=== PATIENT | female | born 1940 | race Two or more races ===

== ENCOUNTER 2021-03-11 13:46 | Inpatient (IN) | payer MEDICARE, OTHER ==
[~2021-03-11] VITALS: Ht 163.8 cm; Wt 68.0 kg
[2021-03-11 15:09] VITALS: BP 142/78
[2021-03-11] MEDS ORDERED: ONDANSETRON 2MG/ML, 2ML IV PRN (15:30)
[2021-03-11] MEDS: SODIUM CHLORIDE 0.9% 1,000 ML IV SCH ×2 (15:30→23:30)
[2021-03-11] MEDS ORDERED: BISACODYL 5 MG EC TABLET PO PRN (15:30)
[2021-03-11] MEDS ORDERED: DIPHENHYDRAMINE 50 MG CAPSULE PO PRN (15:30)
[2021-03-11] MEDS ORDERED: FLUTICASONE NASAL SPRAY 16GM NAS PRN (15:30)
[2021-03-11] MEDS ORDERED: VANCOMYCIN PMX 1GM/200ML 200 ML IVPB ONE (15:30)
[2021-03-11] MEDS ORDERED: FENTANYL PF 100 MCG/2ML ONE (15:41)
[2021-03-11] MEDS ORDERED: MIDAZOLAM 1 MG/ML, 5ML ONE (15:41)
[2021-03-11] MEDS ORDERED: LIDOCAINE 2%, 20ML ONE (15:41)
[2021-03-11] MEDS ORDERED: CEFAZOLIN 1,000 MG ONE (15:41)
[2021-03-11] MEDS ORDERED: CEFAZOLIN PMX 1GM/50ML 50 ML ONE (15:42)
[2021-03-11] MEDS ORDERED: PLEASE ENTER HEIGHT AND WEIGHT MC SCH (16:00)
[2021-03-11] MEDS ORDERED: PLEASE ENTER ALLERGIES MC SCH (16:00)
[2021-03-11] MEDS ORDERED: LIDOCAINE-MPF 1%, 5ML ONE (16:04)
[2021-03-11 16:06] LABS: INTERNATIONAL NORMALIZED RATIO 1.01 (0.93-1.1); PROTHROMBIN TIME 10.8 Seconds (9.6-11.5)
[2021-03-11 16:07] LABS: ANION GAP 6 mmol/L (5-15); CALCIUM 9.1 mg/dL (8.5-10.1); CHLORIDE 110 mmol/L (98-107); CREATININE 0.86 mg/dL (0.55-1.02)
[2021-03-11] MEDS ORDERED: VANCOMYCIN 500 MG ONE ×2 (16:10)
[2021-03-11] MEDS ORDERED: HOLD MEDICATION MC PRN (17:00)
[2021-03-11] MEDS ORDERED: HYDROcodone/APAP 5/325 TABLET PO PRN (17:00)
[2021-03-11] MEDS: CARVEDILOL 6.25 MG TABLET PO SCH (18:44)
[2021-03-11 18:57] VITALS: BP 115/67
[2021-03-11] MEDS: ACETAMINOPHEN 650 MG/20.3 ML UDC PO PRN (19:51)
[2021-03-11 20:11] VITALS: BP 108/64
[2021-03-11] MEDS ORDERED: LEVO75TA5 PO (20:42)
[2021-03-11] MEDS ORDERED: TRET45CR TP (20:42)
[2021-03-11] MEDS ORDERED: PANT40TA6 PO (20:42)
[2021-03-11] MEDS ORDERED: ATOR10TA9 PO (20:42)
[2021-03-11] MEDS ORDERED: LEVO5TAB2 PO (20:42)
[2021-03-11] MEDS ORDERED: PRED1TAB19 PO (20:42)
[2021-03-11] MEDS ORDERED: FLUT9.9S NAS (20:42)
[2021-03-11] MEDS ORDERED: LEVOCETIRIZINE 5 MG TAB PO SCH (21:00)
[2021-03-11] MEDS ORDERED: ATORVASTATIN 10 MG TABLET PO SCH (21:00)
[2021-03-11] MEDS ORDERED: FAMOTIDINE 20 MG TABLET PO SCH (21:00)
[2021-03-11] MEDS: SODIUM CHLORIDE FLUSH 10ML SYR IVF SCH ×2 (22:21)
[2021-03-11] MEDS: FLUTICASONE NASAL SPRAY 16GM NAS SCH (22:23)
[2021-03-12 01:21] VITALS: BP 135/70
[2021-03-12] MEDS ORDERED: VANCOMYCIN PMX 1GM/200ML 200 ML IVPB ONE (05:00)
[2021-03-12] MEDS ORDERED: VANCOMYCIN 1,000 MG in SODIUM CHLORIDE 0.9% 100 ML IVPB ONE (05:30)
[2021-03-12 05:57] VITALS: BP 150/82
[2021-03-12] MEDS: CARVEDILOL 6.25 MG TABLET PO SCH (05:58)
[2021-03-12] MEDS: ACETAMINOPHEN 650 MG/20.3 ML UDC PO PRN (05:59)
[2021-03-12] MEDS ORDERED: LEVOTHYROXINE 75 MCG TABLET PO SCH (06:00)
[2021-03-12] MEDS: SODIUM CHLORIDE 0.9% 1,000 ML IV SCH (07:04)
[2021-03-12 07:25] VITALS: BP 120/75
[2021-03-12] MEDS ORDERED: CARV6.2512 PO (07:37)
[2021-03-12] MEDS ORDERED: ACET325T26 PO (07:37)
[2021-03-12] MEDS: SODIUM CHLORIDE FLUSH 10ML SYR IVF SCH ×2 (08:13)
[2021-03-12] MEDS: FLUTICASONE NASAL SPRAY 16GM NAS SCH (08:14)
== END 2021-03-12 11:20 | disposition home or self-care (01) | DRG 243 ==
LOC: 5SO 14:52 → DCLOUNGE 03-12 11:10
PROVIDERS: ADMIT Internal Medicine Cardiovascular Disease; ATTEND Internal Medicine Cardiovascular Disease
PROC: 0JH606Z Insertion of Pacemaker, Dual Chamber into Chest Subcutaneous Tissue and Fascia, Open Approach (ICD-10-PCS; principal; 2021-03-11)
PROC: 02H63JZ Insertion of Pacemaker Lead into Right Atrium, Percutaneous Approach (ICD-10-PCS; 2021-03-11)
PROC: 02HK3JZ Insertion of Pacemaker Lead into Right Ventricle, Percutaneous Approach (ICD-10-PCS; 2021-03-11)
PROC: 4B02XSZ Measurement of Cardiac Pacemaker, External Approach (ICD-10-PCS; 2021-03-12)
DX: I49.5 Sick sinus syndrome (principal); I47.1 Supraventricular tachycardia; E03.9 Hypothyroidism, unspecified; E78.5 Hyperlipidemia, unspecified; K21.9 Gastro-esophageal reflux disease without esophagitis; Z82.49 Family history of ischemic heart disease and other diseases of the circulatory system; Z90.710 Acquired absence of both cervix and uterus; Z88.1 Allergy status to other antibiotic agents
CPT/HCPCS: 33208; 36415; 71045; 80048; 84443; 85014; 85018; 85610; 93005; 99156; C1779; C1785; C1892; G0378; J0690; J2250; J3010; J3370; J7512